=== PATIENT | female | born 1985 | race Caucasian/White ===

== ENCOUNTER 2024-02-27 13:32 | Outpatient (CLI) | payer OTHER | END 2024-02-27 14:58 | disposition home or self-care (01) | LOC: NST 13:32 | PROVIDERS: ATTEND Obstetrics & Gynecology Maternal & Fetal Medicine | DX: Z34.83 Encounter for supervision of other normal pregnancy, third trimester (principal) ==

== ENCOUNTER 2024-03-19 12:40 | Inpatient (IN) | payer OTHER ==
[~2024-03-19] VITALS: Ht 162.6 cm; Wt 100.7 kg
[2024-03-19 13:36] LABS: HEMATOCRIT 30.1 % (36.0-45.00); HEMOGLOBIN 10.4 g/dL (12.0-15.00); MEAN CELL VOLUME 85.7 fL (80.00-100.00); MEAN CORPUSCULAR HEMOGLOBIN 29.5 pg (27.00-32.0); MEAN CORPUSCULAR HGB CONC 34.4 g/dl (32.0-36.0); PLATELET COUNT 301 K/uL (150-450); RED BLOOD COUNT 3.51 M/uL (4.00-6.00)
[2024-03-19 14:14] LABS: INR 0.95; PARTIAL THROMBOPLASTIN TIME 28.6 SECONDS (22.0-34.0); PROTHROMBIN TIME 10.4 SECONDS (9.0-11.5)
[2024-03-19 14:38] LABS: ALBUMIN 2.8 gm/dL (3.4-5.0); BILIRUBIN TOTAL 0.27 mg/dL (0.3-1.2); CALCIUM 8.9 mg/dL (8.5-10.1); CREATININE SERUM 0.57 mg/dL (0.55-1.02); GFR 118.7; GLOBULINA 3.8 G/DL (2.4-3.5); POTASSIUM 3.98 mEq/L (3.5-5.1); TOTAL PROTEIN 6.6 gm/dL (6.4-8.2)
[2024-04-08 08:12] VITALS: BP 107/70
[2024-04-08] MEDS ORDERED: MORPHINE SULFATE 4 MG/ML VIAL IV ONE ×2 (12:05→13:05)
[2024-04-08] MEDS ORDERED: OXYTOCIN 20 UNITS/1000ML RL PIGGYBAG IV ONE ×2 (12:15)
[2024-04-08] MEDS ORDERED: ERYTHROMYCIN BASE OPHT 1GM EACH TUBE OP ONE (12:15)
[2024-04-08] MEDS ORDERED: CEFAZOLIN SODIUM 1,000 MG VIAL IV ONE (12:15)
[2024-04-08 14:21] VITALS: BP 134/77
[2024-04-08] MEDS ORDERED: MORPHINE SULFATE 4 MG/ML VIAL IV PRN (14:45)
[2024-04-08 16:21] VITALS: BP 124/71
[2024-04-08] MEDS ORDERED: KETOROLAC TROMETHAMINE 30 MG VIAL IV SCH (18:00)
[2024-04-08] MEDS ORDERED: OXYTOCIN 1,000 ML IV ONE (18:00)
[2024-04-08 20:10] VITALS: BP 142/73
[2024-04-09 01:46] VITALS: BP 129/67
[2024-04-09] MEDS ORDERED: ACETAMINOPHEN 500 MG GEL..CAP PO SCH (06:00)
[2024-04-09 06:14] LABS: HEMATOCRIT 30.7 % (36.0-45.00); HEMOGLOBIN 10.2 g/dL (12.0-15.00); MEAN CELL VOLUME 86.9 fL (80.00-100.00); MEAN CORPUSCULAR HEMOGLOBIN 28.9 pg (27.00-32.0); MEAN CORPUSCULAR HGB CONC 33.3 g/dl (32.0-36.0); PLATELET COUNT 262 K/uL (150-450); RED BLOOD COUNT 3.54 M/uL (4.00-6.00); RED CELL DISTRIBUTION WIDTH 13.9 % (11.5-14.5)
[2024-04-09 08:20] VITALS: BP 130/78
[2024-04-09] MEDS ORDERED: DOCUSATE SODIUM 100MG CAP PO SCH (09:00)
[2024-04-09] MEDS ORDERED: SIMETHICONE 125 MG CAPSULE PO SCH (09:00)
[2024-04-09] MEDS ORDERED: GABAPENTIN 300 MG CAPSULE PO SCH (09:00)
[2024-04-09] MEDS ORDERED: PNV,CALCIUM 72/IRON/FOLIC ACID 1 TAB TABLET PO SCH (09:00)
[2024-04-09] MEDS ORDERED: IBUprofen 600 MG TABLET PO SCH (12:00)
[2024-04-09 16:09] VITALS: BP 113/64
[2024-04-10 00:10] VITALS: BP 107/67
[2024-04-10 08:20] VITALS: BP 127/77
[2024-04-10 16:00] VITALS: BP 122/74
[2024-04-11] VITALS: BP 130/80
[2024-04-11 06:09] VITALS: BP 140/65
[2024-04-11 08:48] VITALS: BP 116/55
[2024-04-11] MEDS ORDERED: PERCOCET 5-3251 EACH PO (10:35)
[2024-04-11] MEDS ORDERED: KETO10TA2 PO (10:36)
== END 2024-04-11 13:29 | disposition home or self-care (01) | DRG 788 ==
LOC: O/R 04-08 06:55 → OB/GYN 04-08 06:55
PROVIDERS: Obstetrics & Gynecology Gynecology; ADMIT Obstetrics & Gynecology Maternal & Fetal Medicine; ATTEND Obstetrics & Gynecology Maternal & Fetal Medicine
PROC: 4A1HXCZ Monitoring of Products of Conception, Cardiac Rate, External Approach (ICD-10-PCS; 2024-04-08)
PROC: 10D00Z1 Extraction of Products of Conception, Low, Open Approach (ICD-10-PCS; principal; 2024-04-08 09:00)
DX: O34.211 Maternal care for low transverse scar from previous cesarean delivery (principal); Z37.0 Single live birth; Z20.822 Contact with and (suspected) exposure to COVID-19; Z3A.39 39 weeks gestation of pregnancy